=== PATIENT | female | born 1995 | race Two or more races ===

== ENCOUNTER 2023-09-28 23:52 | Emergency (ER) | payer OTHER ==
[~2023-09-28] VITALS: Ht 170.2 cm; Wt 68.0 kg
[2023-09-29] MEDS ORDERED: KETOROLAC TROMETHAMINE INJ 30 MG/ML VIAL ONE (00:19)
[2023-09-29] MEDS ORDERED: ONDANSETRON HCL/PF 4 MG/2 ML VIAL ONE (00:19)
[2023-09-29] MEDS: IV NS 0.9% 1,000 ML BAG IV ONE (00:28)
[2023-09-29] MEDS: KETOROLAC TROMETHAMINE 15 MG/ML VIAL IV ONE (00:29)
[2023-09-29] MEDS: ONDANSETRON HCL/PF 4 MG/2 ML VIAL IVP ONE (00:29)
[2023-09-29 00:37] LABS: EOSINOPHILS # (AUTO) 0.1 K/uL (0.0-0.7); EOSINOPHILS % (AUTO) 0.5 % (0.0-6.0); HEMATOCRIT 36 % (33-45); HEMOGLOBIN 11.9 g/dL (11.5-14.8); LYMPHOCYTES % (AUTO) 9.5 % (20.0-44.0); MEAN CORPUSCULAR HEMOGLOBIN 26 PG (26.0-33.0); MEAN CORPUSCULAR HGB CONC 33 g/dl (31.0-36.0); MEAN CORPUSCULAR VOLUME 80 fL (82-100); MONOCYTES # (AUTO) 0.5 K/uL (0.1-1.30); NEUTROPHILS # (AUTO) 9.2 K/uL (1.8-8.9); PLATELET COUNT (AUTO) 219 K/uL (150-450); RED BLOOD CELL COUNT(AUTO) 4.54 MIL/uL (4.0-5.2); RED CELL DISTRIBUTION WIDTH 13.8 % (11.5-15.0); WHITE BLOOD COUNT (AUTO) 10.8 K/uL (4.3-11.0)
[2023-09-29 00:49] LABS: BILIRUBIN,DIRECT 0.1 mg/dL (0.0-0.2); BILIRUBIN,TOTAL 0.2 mg/dL (0.2-1.0); CALCIUM, SERUM 8.5 mg/dL (8.5-10.1); CREATININE 0.7 mg/dL (0.6-1.3); POTASSIUM 3.7 mmol/L (3.5-5.1); TOTAL PROTEIN, SERUM 6.7 g/dL (6.4-8.2)
[2023-09-29 00:55] LABS: APPEARANCE,URINE CLEAR (CLEAR); BILIRUBIN,URINE NEGATIVE (NEGATIVE); BLOOD, URINE TRACE-INTA Ery/uL (NEGATIVE); COLOR,URINE YELLOW (YELLOW); KETONES,URINE NEGATIVE (NEGATIVE); LEUKOCYTE ESTERASE ,URINE NEGATIVE (NEGATIVE); NITRITE, URINE NEGATIVE (NEGATIVE); PH,URINE 5.5 (5.0-8.0); PREGNANCY TEST URINE QUAL NEGATIVE (NEGATIVE); PROTEIN,URINE NEGATIVE (NEGATIVE); UGLUCOSE NEGATIVE (NEGATIVE); UROBILINOGEN,URINE 0.2 EU/dL (0.2)
[2023-09-29 00:58] LABS: ADD URINE CULTURE NO; BACTERIA,URINE Rare /HPF (None Seen); SQUAMOUS EPITHELIAL CELL,UR Rare /HPF (None Seen); WBC,URINE 0-2 /HPF (0-3)
[2023-09-29] MEDS ORDERED: CT SWABBABLE VALVE TRANS SET 1 EA INFUS.SET MC ONE (01:17)
[2023-09-29] MEDS ORDERED: IV NS 0.9% 250 ML IV ONE (01:17)
[2023-09-29] MEDS ORDERED: IOHEXOL-300 100 ML VIAL IV ONE (01:17)
[2023-09-29] MEDS ORDERED: IBUP-1953 PO (02:12)
[2023-09-29 02:26] VITALS: BP 122/80; TEMP 98.8; O2SAT 98
== END 2023-09-29 02:37 | disposition home or self-care (01) ==
LOC: ER 23:53
DX: R10.30 Lower abdominal pain, unspecified (principal)
CPT/HCPCS: 99285; 74177; 96374; 96361; 85025; 80048; 83690; 80076; 84703; 81001; 36415; J7030; J1885; J2405; J7050; Q9967